=== PATIENT | male | born 1975 | race African-American/Black ===

== ENCOUNTER 2019-05-01 21:34 | Emergency (ER) | payer OTHER ==
[~2019-05-01] VITALS: Ht 195.6 cm; Wt 103.5 kg
[~2019-05-01 21:34] MED LIST: DIAZ5TAB PO; IBUP800T48 PO
[2019-05-01 21:36] VITALS: Ht 195.6 cm; Wt 103.5 kg
[2019-05-01] MEDS ORDERED: HYDROCODONE/APAP (10/325) TAB PO ONE (23:30)
[2019-05-01] MEDS ORDERED: ONDANSETRON (ODT) 4 MG TAB ODT ONE (23:30)
[2019-05-02 01:35] VITALS: BP 138/91; PULSE 82; RESP 16
== END 2019-05-02 01:30 | disposition home or self-care (01) ==
LOC: E/R 21:34
DX: S39.012A Strain of muscle, fascia and tendon of lower back, initial encounter (principal); F07.81 Postconcussional syndrome; V86.39XA Unspecified occupant of other special all-terrain or other off-road motor vehicle injured in traffic accident, initial encounter
CPT/HCPCS: 70450; Z7502; Z7610